=== PATIENT | male | born 1955 | race Caucasian/White ===

== ENCOUNTER → 2020-05-20 | Outpatient (CLI) | payer BC, OTHER ==
[~2020-05-20] MED LIST: ALPR0.25 PO; AMPH10TA23 PO; BUPR150T6 PO; IBUP-1223 PO; TAMS-11 PO; Vitamin B PO; Vitamin C PO
== END | disposition home or self-care (01) ==
LOC: STAR 08:48
PROVIDERS: ATTEND Orthopaedic Surgery
DX: Z01.818 Encounter for other preprocedural examination (principal); S83.241A Other tear of medial meniscus, current injury, right knee, initial encounter; S83.281A Other tear of lateral meniscus, current injury, right knee, initial encounter; M25.561 Pain in right knee; X58.XXXA Exposure to other specified factors, initial encounter; Y93.89 Activity, other specified; Y92.89 Other specified places as the place of occurrence of the external cause; Y99.8 Other external cause status
CPT/HCPCS: 93005

== ENCOUNTER 2020-05-28 08:18 | Day surgery (SDC) | payer BC, OTHER ==
[~2020-05-28] VITALS: Ht 177.8 cm; Wt 128.0 kg
[2020-05-28] MEDS ORDERED: LACTATED RINGERS 1,000 ML IV SCH (08:35)
[2020-05-28] MEDS ORDERED: CHLORHEXIDINE 15 ML UDC MM ONE (09:00)
[2020-05-28] MEDS ORDERED: FENTANYL PF 100 MCG/2ML ONE (10:07)
[2020-05-28] MEDS ORDERED: MIDAZOLAM 1 MG/ML, 2ML ONE (10:07)
[2020-05-28] MEDS ORDERED: PROPOFOL 10 MG/ML, 20ML ONE (10:10)
[2020-05-28] MEDS ORDERED: CEFAZOLIN 1,000 MG ONE (10:10)
[2020-05-28] MEDS ORDERED: DEXAMETHASONE 4 MG/ML, 1ML ONE (10:10)
[2020-05-28] MEDS ORDERED: ONDANSETRON 2MG/ML, 2ML ONE (10:10)
[2020-05-28] MEDS ORDERED: AMPHETAMINE SULFATE 10 MG PO PRN (10:30)
[2020-05-28] MEDS ORDERED: IBUPROFEN 800 MG TABLET PO PRN (10:30)
[2020-05-28] MEDS ORDERED: BUPIVACAINE/PF 0.5% ONE (10:34)
[2020-05-28] MEDS ORDERED: EPINEPHRINE 1 MG/ML, 1ML ONE ×2 (10:34→10:59)
[2020-05-28] MEDS ORDERED: LIDOCAINE/PF 1%-EPI 1:200K, 30 ML ONE (10:34)
[2020-05-28] MEDS ORDERED: KETOROLAC 30 MG/1 ML ONE (10:46)
[2020-05-28] MEDS ORDERED: BUPIVACAINE/PF 0.25% ONE (10:58)
[2020-05-28] MEDS ORDERED: ALBUTEROL SULFATE 2.5 MG/3 ML NPPB PRN (11:00)
[2020-05-28] MEDS ORDERED: FENTANYL PF 100 MCG/2ML IV PRN (11:00)
[2020-05-28] MEDS ORDERED: HYDROmorphone 1 MG/ML, 1ML INJ IVPush PRN (11:00)
[2020-05-28] MEDS ORDERED: LABETALOL 5MG/ML, 20ML IV PRN (11:00)
[2020-05-28] MEDS ORDERED: PROMETHAZINE 25 MG/ML, 1ML IVPush PRN (11:00)
[2020-05-28] MEDS ORDERED: MEPERIDINE/PF 25MG/0.5ML IVPush PRN (11:00)
[2020-05-28] MEDS ORDERED: LORazepam 2 MG/ML, 1ML IVPush PRN (11:00)
[2020-05-28] MEDS ORDERED: OXYcodone 5 MG/5 ML ORAL.SOL UDC PO PRN (11:00)
[2020-05-28] MEDS ORDERED: ACETAMINOPHEN 325 MG TABLET PO PRN (11:00)
[2020-05-28] MEDS ORDERED: hydrALAzine 20 MG/ML, 1ML IV PRN (11:00)
[2020-05-28] MEDS ORDERED: LIDOCAINE-MPF 2% ,5ML ONE (11:12)
[2020-05-29] MEDS ORDERED: TEMPLATE NON-FORMULARY MED. (Bupropion Hcl** (Bupropion Xl**) 150 MG) PO SCH (09:00)
[2020-05-29] MEDS ORDERED: TAMSULOSIN 0.4 MG CAP.ER.24H PO SCH (09:00)
== END 2020-05-28 13:15 | disposition home or self-care (01) ==
LOC: OUT 08:18
PROVIDERS: ATTEND Orthopaedic Surgery
DX: S83.241A Other tear of medial meniscus, current injury, right knee, initial encounter (principal); Z20.828 Contact with and (suspected) exposure to other viral communicable diseases; S83.271A Complex tear of lateral meniscus, current injury, right knee, initial encounter; M94.261 Chondromalacia, right knee; J45.909 Unspecified asthma, uncomplicated; E66.01 Morbid (severe) obesity due to excess calories; N40.0 Benign prostatic hyperplasia without lower urinary tract symptoms; E03.9 Hypothyroidism, unspecified; Z68.41 Body mass index [BMI] 40.0-44.9, adult; X58.XXXA Exposure to other specified factors, initial encounter; Y93.89 Activity, other specified; Y92.89 Other specified places as the place of occurrence of the external cause; Y99.8 Other external cause status; Z88.3 Allergy status to other anti-infective agents; Z79.899 Other long term (current) drug therapy; Z72.89 Other problems related to lifestyle; Z87.891 Personal history of nicotine dependence; Z98.890 Other specified postprocedural states
CPT/HCPCS: 29880; 36415; 87635; J0171; J0690; J1100; J1885; J2250; J2405; J2704; J3010; J3490; J7120

== ENCOUNTER → 2021-06-23 | Outpatient (CLI) | payer OTHER ==
[~2021-06-23] MED LIST changes: +BUPR150T22 PO; -BUPR150T6 PO
== END | disposition home or self-care (01) ==
LOC: STAR 08:00 → EDSTATUS 06-25 10:30
PROVIDERS: ATTEND Orthopaedic Surgery
DX: Z01.818 Encounter for other preprocedural examination (principal); Z20.822 Contact with and (suspected) exposure to COVID-19; S91.002S Unspecified open wound, left ankle, sequela; X58.XXXS Exposure to other specified factors, sequela
CPT/HCPCS: 93005; U0003; U0005